=== PATIENT | female | born 1970 | race Caucasian/White ===

== ENCOUNTER 2016-06-23 10:05 | Outpatient (CLI) ==
[2015-03-26 20:46] VITALS: BMI 32.6
--- NOTE | 2016-06-23 10:22 | DI ---
EXAM: Two views of the chest. History: Cough and chest pain. Comparison: Chest radiograph 06/19/2013 Findings: Heart size is normal. No focal consolidation. No appreciable pleural fluid and no pneum othorax. No acute osseous abnormalities. Calcified granulomas again seen within the thorax. Surgi yuniel clips again seen projecting over the left lower hemithorax. Impression: No acute cardiopulmonary process.
== END 2016-06-23 10:06 | disposition home or self-care (01) ==
LOC: RAD 10:05
PROVIDERS: ATTEND Family Medicine
DX: R07.81 Pleurodynia (principal); R05 Cough

== ENCOUNTER 2021-07-24 22:34 | Observation (INO) ==
[2021-07-24 23:13] LABS: BASOPHILS # (AUTO) 0.1 K/uL (0-0.2); BASOPHILS % (AUTO) 0.4 % (0.0-3.0); EOSINOPHILS # (AUTO) 0.1 K/ul (0.0-0.7); EOSINOPHILS % (AUTO) 0.9 % (0.0-7.0); HEMATOCRIT 36.5 % (37.0-47.0); HEMOGLOBIN 11.4 g/dl (12.0-16.0); IMMATURE GRANULOCYTE # (AUTO) 0.1 (0.0-1.0); IMMATURE GRANULOCYTE % (AUTO) 0.5 % (0.0-5.0); LYMPHOCYTES # (AUTO) 2.2 K/uL (0.60-3.4); MEAN CORPUSCULAR HEMOGLOBIN 25.3 pg (27.0-31.0); MEAN CORPUSCULAR HGB CONC 31.2 (31.8-35.4); MEAN CORPUSCULAR VOLUME 81.1 fl (81.0-99.0); MONOCYTES # (AUTO) 0.9 K/uL (0.4-2.0); MONOCYTES % (AUTO) 8.1 (0-10); NEUTROPHILS # (AUTO) 8.2 K/ul (2.0-6.9); NEUTROPHILS % (AUTO) 71.1 % (42.2-75.2); PLATELET COUNT 400 10^3/uL (140-440); RDW COEFFICIENT OF VARIATION 16.4 % (11.6-14.8); WHITE BLOOD COUNT 11.47 K/ul (4.6-10.2)
[2021-07-24 23:25] LABS: ALANINE AMINOTRANSFERASE 51.3 U/L (0-35); ALBUMIN 4.17 g/dL (3.5-5.0); ALKALINE PHOSPHATASE 109.8 U/L (38-126); ASPARTATE AMINO TRANSFERASE 48.7 U/L (14-36); BLOOD UREA NITROGEN 14.8 mg/dL (7-17); CALCIUM 8.82 mg/dL (8.4-10.2); CARBON DIOXIDE 21.5 mmol/L (22-30.0); CHLORIDE 97.9 mmol/L (98-107); CREATININE 1.24 mg/dL (0.60-1.30); GLUCOSE 134.7 mg/dL (74-106); SODIUM 132.2 mmol/L (134.5-145); TOTAL PROTEIN 7.42 g/dL (6.3-8.2)
[2021-07-24 23:39] LABS: POTASSIUM 2.79 mmol/L (3.5-5.1); TROPONIN I < 0.012 ng/ml (0.0000-0.120)
--- NOTE | 2021-07-24 23:55 | ED.PDOC ---
General ED Provider: Dr. KATIE CHRISTINE Chief Complaint: Non-specific Complaint Stated Complaint: feels weak and shaky--legs tingling Time Seen by Provider: 07/24/21 23:51 Mode of Arrival: Walk-In Information Source: Patient Exam Limitations: No limitations Primary Care Provider: KATIE CHRISTINE Nursing and Triage Documentation Reviewed and Agree: Yes Does patient meet sepsis criteria?: No System Inflammatory Response Syndrome: Not Applicable Sepsis Protocol: For patient's 13 years and over: Temp is 96.8 and below OR 101 and greater Pulse >90 BPM Resp >20/minute Acutely Altered Mental Status Are patient's symptoms suggestive of a new infection, such as: -Pneumonia -Skin, Soft Tissue -Endocarditis -UTI -Bone, Joint Infection -Implantable Device -Acute Abdominal Infection -Wound Infection -Meningitis -Blood Stream Catheter Infection -Unknown Miscellaneous Complaint Exam Complex/Multi-System Complaint/Exam Onset/Duration: 24hrs Symptoms Are: Still present Episodes Lasting: Minutes Initial Severity: Mild Current Severity: Mild Location of Pain: legs Associated Signs and Symptoms: Reports Weakness Recent Echo/LV Function: No Respiratory Distress: None JVD Present: No Tachypnea Present: No Stridor Present: No Abdominal Findings: Present Normal findings Glascow Coma Scale (see protocol): 15 Meningeal Signs Positive: No Focal Weakness: Present None Focal Sensory Loss: Present None Gait: Normal Gag Reflex Present: Yes Babinski Sign: Negative Right and Negative Left Skin Findings: Present Normal findings Joint Swelling Present: No In-Dwelling Device Present: No Quality Indicators for Cardiac Chest Pain: EKG in 10min. Quality Indicator For Non-Traumatic Chest Pain/Syncope: EKG Performed Review of Systems Review Of Systems Constitutional: Reports No symptoms Eyes: Reports No symptoms Ears, Nose, Mouth, Throat: Reports No symptoms Respiratory: Reports No symptoms Cardiac: Reports No symptoms GI: Reports No symptoms : Reports No symptoms Musculoskeletal: Reports No symptoms Skin: Reports No symptoms Neurological: Reports Anxiety Endocrine: Reports No symptoms Hematologic/Lymphatic: Reports No symptoms All Other Systems: Reviewed and Negative PFSH Female Reproductive History Menstrual Hx Hysterectomy: Yes Hx Tubal Ligation: No Physical Exam Physical Exam Appearance: Reports Well-appearing Ill-appearing: None Pain Distress: None Eyes: Reports KRYS, EOMI and Conjunctiva clear ENT: Reports Ears normal and Nose normal Neck: Supple Respiratory: Reports Airway patent, Breath sounds clear and Breath sounds equal Cardiovascular: Reports RRR, Pulses normal, No rub and No murmur GI/: Reports Soft, Nontender and No masses Musculoskeletal: Reports Normal strength, ROM intact and No edema Skin: Reports Warm, Dry and Normal color Neurological: Reports Sensation intact, Motor intact, Reflexes intact, Cranial n erves intact, Alert and Oriented Psychiatric: Reports Affect appropriate, Mood appropriate and Anxious Critical Care Note Critical Care Note Total Critical Care Time (mins): 0 Course Course Hematology/Chemistry: 07/24/21 23:08 07/24/21 23:08 Orders, Labs, Meds: Lab Review 07/24/21 07/24/21 07/24/21 23:08 23:08 23:08 WBC 11.47 H RBC 4.50 Hgb 11.4 L Hct 36.5 L MCV 81.1 MCH 25.3 L MCHC 31.2 L RDW Coeff of Lilian 16.4 H Plt Count 400 Immature Gran % (Auto) 0.5 Neut % (Auto) 71.1 Lymph % (Auto) 19.0 [place] % (Auto) 8.1 Eos % (Auto) 0.9 Baso % (Auto) 0.4 Neut # (Auto) 8.2 H Lymph # (Auto) 2.2 [place] # (Auto) 0.9 Eos # (Auto) 0.1 Baso # (Auto) 0.1 Immature Gran # (Auto) 0.1 Sodium 132.2 L Potassium 2.79 L* Chloride 97.9 L Carbon Dioxide 21.5 L Anion Gap 15.59 BUN 14.8 Creatinine 1.24 Estimated GFR (MDRD) 45.00 BUN/Creatinine Ratio 11.93 Glucose 134.7 H Hemoglobin A1c 5.57 Calcium 8.82 Total Bilirubin 0.50 AST 48.7 H ALT 51.3 H Alkaline Phosphatase 109.8 Troponin I < 0.012 Total Protein 7.42 Albumin 4.17 Globulin 3.25 Albumin/Globulin Ratio 1.28 Orders Category Date Time Status EKG-(ED ONLY) Stat CARDIO 07/24/21 22:57 Ordered CBC W/ AUTO DIFF Stat LAB 07/24/21 23:08 Completed CMP [COMPREHENSIVE METABOLIC PANEL] Stat LAB 07/24/21 23:08 Completed HEMOGLOBIN A1C Stat LAB 07/24/21 23:08 Completed TROPONIN I Stat LAB 07/24/21 23:08 Completed URINALYSIS C & S IF INDICATED Stat LAB 07/24/21 22:57 Uncollected Vital Signs: Temp Pulse Resp BP Pulse Ox 07/24/21 22:34 98.2 F 84 24 138/85 96 Discharge Plan Discharge Patient Disposition: HOME SELF-CARE Discharge Problem: Acute hypokalemia Instructions: Hypokalemia (ED) Prescriptions: No Action omeprazole 20 MG capsule,delayed release(DR/EC) 20 mg PO BID 0RF albuterol sulfate [ProAir HFA] 90 mcg/actuation HFA aerosol inhaler 2 puff INHALATION PRN PRN (Reason: Shortness Of Breath) 0RF budesonide-formoterol [Symbicort] 80-4.5 mcg/actuation Hfa Aerosol Inhaler 2 puff INHALATION BID 0RF albuterol sulfate 2.5 mg /3 mL (0.083 %) Solution For Nebulization 2.5 mg INHALATION Q4-6H PRN (Reason: SHORT OF BREATH) 0RF metoprolol succinate 50 mg Tablet Extended Release 24 Hr 50 mg PO DAILY 0RF naproxen sodium [Aleve] 220 mg Tablet 220 mg PO BID PRN (Reason: Pain) 0RF azelastine 137 mcg (0.1 %) Aerosol,[place] 2 spray INTRANASAL BID 0RF Rx Instructions: administer into each nostril dicyclomine 10 mg Capsule 10 mg PO QID PRN (Reason: CRAMPING) 0RF Mucinex 1,200 mg Tablet Extended Release 12hr 1,200 mg PO BID 0RF Spiriva Respimat 1.25 mcg/actuation Mist 2 puff INHALATION DAILY 0RF fluticasone prp-sod.chl,bicarb 50 mcg- 0.9 % Kit,[place] Suspension And [place] 2 spray INTRANASAL DAILY 0RF aspirin [Aspir-81] 81 mg Tablet,Delayed Release (Dr/Ec) 81 mg PO DAILY 0RF furosemide [Lasix] 20 mg Tablet 20 mg PO DAILY 0RF ciprofloxacin HCl 0.3 % drops 1 drp BOTHEYES BID 0RF diltiazem HCl 120 mg Capsule,Extended Release 24 Hr 120 mg PO DAILY 0RF losartan-hydrochlorothiazide [Hyzaar] 50-12.5 mg Tablet 1 tab PO DAILY 0RF levocetirizine [Xyzal] 5 mg Tablet 5 mg PO DAILY 0RF ED Provider: KATIE TELLEZ Condition: Good Physician Progress Note: []
[2021-07-25] MEDS ORDERED: POTASSIUM CHLORIDE 20 MEQ/100 ML PREMIX 40 MEQ/200 ML BAG IV STA (00:05)
[2021-07-25] MEDS ORDERED: ALBUTEROL 0.083% NEB NEB PRN (00:07)
[2021-07-25] MEDS ORDERED: VENTOLIN HFA (PER PUFF-WITH SPACER) IH PRN (00:07)
[2021-07-25] MEDS ORDERED: BENTYL PO PRN (00:07)
[2021-07-25 00:45] LABS: BILIRUBIN,URINE 1+ (NEGATIVE); CLARITY,URINE Clear (CLEAR); COLOR,URINE Yellow (YELLOW); GLUCOSE, URINE (UA) Negative (NEGATIVE); KETONES,URINE Negative (NEGATIVE); LEUKOCYTE ESTERASE ,URINE Negative (NEGATIVE); NITRITE,URINE Negative (NEGATIVE); PH,URINE 5.5 (5-9); PROTEIN,URINE 1+ (NEGATIVE); URINE, BLOOD Negative (NEGATIVE); UROBILINOGEN,URINE 0.2 (0.2)
[2021-07-25 00:48] LABS: URINE RBC, MICROSCOPIC 0-2 (0-2); URINE WBC, MICROSCOPIC 0-2 (0-2)
[2021-07-25 02:05] VITALS: BMI 48.2
[2021-07-25 05:38] LABS: BASOPHILS % (AUTO) 0.3 % (0.0-3.0); EOSINOPHILS # (AUTO) 0.1 K/ul (0.0-0.7); EOSINOPHILS % (AUTO) 1.4 % (0.0-7.0); HEMATOCRIT 35.5 % (37.0-47.0); HEMOGLOBIN 10.8 g/dl (12.0-16.0); IMMATURE GRANULOCYTE # (AUTO) 0.1 (0.0-1.0); IMMATURE GRANULOCYTE % (AUTO) 0.6 % (0.0-5.0); LYMPHOCYTES # (AUTO) 2.2 K/uL (0.60-3.4); LYMPHOCYTES % (AUTO) 22.2 (10.0-50.0); MEAN CORPUSCULAR HEMOGLOBIN 24.9 pg (27.0-31.0); MEAN CORPUSCULAR HGB CONC 30.4 (31.8-35.4); MEAN CORPUSCULAR VOLUME 81.8 fl (81.0-99.0); MONOCYTES # (AUTO) 0.8 K/uL (0.4-2.0); MONOCYTES % (AUTO) 8.2 (0-10); NEUTROPHILS # (AUTO) 6.7 K/ul (2.0-6.9); NEUTROPHILS % (AUTO) 67.3 % (42.2-75.2); PLATELET COUNT 366 10^3/uL (140-440); RDW COEFFICIENT OF VARIATION 16.6 % (11.6-14.8); RED BLOOD COUNT 4.34 10^6/ul (4.20-5.40); WHITE BLOOD COUNT 9.92 K/ul (4.6-10.2)
[2021-07-25 05:53] LABS: ALANINE AMINOTRANSFERASE 53.1 U/L (0-35); ALBUMIN 3.83 g/dL (3.5-5.0); ALKALINE PHOSPHATASE 96.9 U/L (38-126); ASPARTATE AMINO TRANSFERASE 52.1 U/L (14-36); BILIRUBIN,TOTAL 0.45 mg/dL (0.2-1.3); BLOOD UREA NITROGEN 13.8 mg/dL (7-17); CALCIUM 8.53 mg/dL (8.4-10.2); CARBON DIOXIDE 25.7 mmol/L (22-30.0); CHLORIDE 97.7 mmol/L (98-107); CREATININE 1.2 mg/dL (0.60-1.30); GLUCOSE 107.5 mg/dL (74-106); POTASSIUM 2.87 mmol/L (3.5-5.1); SODIUM 131.4 mmol/L (134.5-145); TOTAL PROTEIN 6.83 g/dL (6.3-8.2)
--- NOTE | 2021-07-25 05:58 | PCM ---
Chief Complaint Chief Complaint: im weak History of Present Illness History of Present Illness: this is a 51 yr old lady with hx of asthma and copd recently seen by cardiology and had several meds added. now presented to the ed with generalized weakness and fatigue. denies any chest pain. Review of Systems Constitutional: Reports Weakness and Fatigue Eyes: Reports No symptoms Ears: Reports No symptoms Nose: Reports No symptoms Throat: Reports No symptoms Mouth: Reports No symptoms Respiratory: Reports Shortness of air Cardiovascular: Reports No symptoms Gastrointestinal: Reports No symptoms Genitourinary: Reports No symptoms Neurological: Reports No symptoms Musculoskeletal: Reports No symptoms Skin: Reports No symptoms Immunology: Reports No symptoms Hematology: Reports No symptoms Endocrine: Reports No symptoms Psychiatric: Reports No symptoms Habits: Denies Tobacco use, Substance use, Alcohol use or Other Allergies Allergies Allergy/AdvReac Type Severity Reaction Status Date / Time codeine AdvReac "DEATHLY Verified 07/24/21 23:03 SICK" fluticasone propionate AdvReac Rash Verified 07/24/21 23:03 [From Advair Diskus] mometasone furoate AdvReac Rash Verified 07/24/21 23:03 [From Nasonex] morphine AdvReac "DEATHLY Verified 07/24/21 23:03 SICK" salmeterol xinafoate AdvReac Rash Verified 07/24/21 23:03 [From Advair Diskus] suture AdvReac Itching/BLI Verified 07/24/21 23:03 STERING triamcinolone acetonide AdvReac Rash Verified 07/24/21 23:03 [From Nasacort AQ] PFSH Medical History Asthma Diabetes GERD (gastroesophageal reflux disease) Hyperlipemia Hypertension Surgical History H/O cardiac catheterization H/O gastric sleeve History of hysterectomy Hx of cholecystectomy Family History FATHER Myocardial infarct Mother Myocardial infarct Social History Smoking and tobacco status: Never smoker Alcohol intake: never Medications Medications: Medications Generic Name Dose Route Start Last Admin Trade Name Freq PRN Reason Stop Dose Admin Albuterol Sulfate 2.5 mg 07/25/21 00:07 Albuterol Sulfate 0.083% Vial.Neb NEB Q4-6H PRN Wheezing Albuterol Sulfate 2 puff 07/25/21 00:07 Albuterol Sulfate (Ventolin Hfa) 18 Gm 1 Puff With Spacer IH PRN PRN Wheezing Aspirin 81 mg 07/25/21 09:00 Aspirin 81 Mg Tablet. PO DAILY [facility] Budesonide/Formoterol Fumarate 2 puff 07/25/21 09:00 Budesonide/Formoterol Fumarate 80/4.5 Mcg Hfa.Aer.Ad IH BID JOHN Dicyclomine HCl 10 mg 07/25/21 00:07 07/25/21 01:07 Dicyclomine Hcl 10 Mg Capsule PO 10 mg QID PRN Administration Abdominal Pain Diltiazem HCl 120 mg 07/25/21 09:00 Diltiazem Hcl 120 Mg Cap.Er.24h PO DAILY [facility] Enoxaparin Sodium 40 mg 07/25/21 09:00 Enoxaparin Sodium 40 Mg/0.4 Ml Syr SUBCUT DAILY [facility] Furosemide 20 mg 07/25/21 09:00 Furosemide 20 Mg Tablet PO DAILY [facility] HCTZ/Losartan Potassium 1 tab 07/25/21 09:00 Losartan/Hydrochlorothiazide 50/12.5 Mg Tab PO DAILY [facility] Loratadine 10 mg 07/25/21 09:00 Loratadine 10 Mg Tablet PO DAILY [facility] Metoprolol Succinate 50 mg 07/25/21 09:00 Metoprolol Succinate 50 Mg Tab.Er.24h PO DAILY [facility] Non-Formulary Medication 2 puff 07/25/21 09:00 Tiotropium [place] [Spiriva Respimat] IH DAILY [facility] Omeprazole 20 mg 07/25/21 09:00 Omeprazole 20 Mg Capsule. PO BID [facility] Body Composition Height: 5 ft 7 in Weight: 308 lb Body Mass Index (BMI): 48.2 Vital Signs Temperature: 97.3 F Pulse Rate: 75 Respiratory Rate: 18 Blood Pressure: 118/71 O2 Sat by Pulse Oximetry: 100 Physical Examination Appearance: Reports Well-appearing Ill-appearing: None Pain Distress: None Eyes: Reports KRYS, EOMI and Conjunctiva clear ENT: Reports Ears normal, Nose normal and Oropharynx normal Neck: Supple Respiratory: Reports Airway patent, Breath sounds clear and Breath sounds equal Cardiovascular: Reports RRR, Pulses normal, No rub and No murmur GI/: Reports Soft, Nontender, No masses and Bowel sounds normal Musculoskeletal: Reports Normal strength, ROM intact, No edema and No calf tenderness Skin: Reports Warm, Dry and Normal color Neurological: Reports Sensation intact, Motor intact, Reflexes intact, Cranial nerves intact, Alert and Oriented Psychiatric: Reports Affect appropriate, Mood appropriate and Anxious Lab/Tests/Diagnostic Imaging Lab/Tests/Diagnostic Imaging: Lab Review 07/24/21 07/24/21 07/24/21 23:08 23:08 23:08 WBC 11.47 H RBC 4.50 Hgb 11.4 L Hct 36.5 L MCV 81.1 MCH 25.3 L MCHC 31.2 L RDW Coeff of Lilian 16.4 H Plt Count 400 Immature Gran % (Auto) 0.5 Neut % (Auto) 71.1 Lymph % (Auto) 19.0 [place] % (Auto) 8.1 Eos % (Auto) 0.9 Baso % (Auto) 0.4 Neut # (Auto) 8.2 H Lymph # (Auto) 2.2 [place] # (Auto) 0.9 Eos # (Auto) 0.1 Baso # (Auto) 0.1 Immature Gran # (Auto) 0.1 Sodium 132.2 L Potassium 2.79 L* Chloride 97.9 L Carbon Dioxide 21.5 L Anion Gap 15.59 BUN 14.8 Creatinine 1.24 Estimated GFR (MDRD) 45.00 BUN/Creatinine Ratio 11.93 Glucose 134.7 H Hemoglobin A1c 5.57 Calcium 8.82 Total Bilirubin 0.50 AST 48.7 H ALT 51.3 H Alkaline Phosphatase 109.8 Troponin I < 0.012 Total Protein 7.42 Albumin 4.17 Globulin 3.25 Albumin/Globulin Ratio 1.28 Urine Color Urine Clarity Urine pH Ur Specific [place] Urine Protein Urine Glucose (UA) Urine Ketones Urine Blood Urine Nitrite Urine Bilirubin Urine Urobilinogen Ur Leukocyte Esterase Urine Microscopic RBC Urine Microscopic WBC Ur Squamous Epith Cells SARS-CoV-2 Ag (Rapid) 07/25/21 07/25/21 07/25/21 00:28 00:28 05:01 WBC 9.92 RBC 4.34 Hgb 10.8 L Hct 35.5 L MCV 81.8 MCH 24.9 L MCHC 30.4 L RDW Coeff of Lilian 16.6 H Plt Count 366 Immature Gran % (Auto) 0.6 Neut % (Auto) 67.3 Lymph % (Auto) 22.2 [place] % (Auto) 8.2 Eos % (Auto) 1.4 Baso % (Auto) 0.3 Neut # (Auto) 6.7 Lymph # (Auto) 2.2 [place] # (Auto) 0.8 Eos # (Auto) 0.1 Baso # (Auto) 0.0 Immature Gran # (Auto) 0.1 Sodium Potassium Chloride Carbon Dioxide Anion Gap BUN Creatinine Estimated GFR (MDRD) BUN/Creatinine Ratio Glucose Hemoglobin A1c Calcium Total Bilirubin AST ALT Alkaline Phosphatase Troponin I Total Protein Albumin Globulin Albumin/Globulin Ratio Urine Color Yellow Urine Clarity Clear Urine pH 5.5 Ur Specific [place] 1.025 Urine Protein 1+ H Urine Glucose (UA) Negative Urine Ketones Negative Urine Blood Negative Urine Nitrite Negative Urine Bilirubin 1+ H Urine Urobilinogen 0.2 Ur Leukocyte Esterase Negative Urine Microscopic RBC 0-2 Urine Microscopic WBC 0-2 Ur Squamous Epith Cells 10-20 SARS-CoV-2 Ag (Rapid) Negative 07/25/21 05:01 WBC RBC Hgb Hct MCV MCH MCHC RDW Coeff of Lilian Plt Count Immature Gran % (Auto) Neut % (Auto) Lymph % (Auto) [place] % (Auto) Eos % (Auto) Baso % (Auto) Neut # (Auto) Lymph # (Auto) [place] # (Auto) Eos # (Auto) Baso # (Auto) Immature Gran # (Auto) Sodium 131.4 L Potassium 2.87 L Chloride 97.7 L Carbon Dioxide 25.7 Anion Gap 10.87 BUN 13.8 Creatinine 1.20 Estimated GFR (MDRD) 47.00 BUN/Creatinine Ratio 11.50 Glucose 107.5 H Hemoglobin A1c Calcium 8.53 Total Bilirubin 0.45 AST 52.1 H ALT 53.1 H Alkaline Phosphatase 96.9 Troponin I Total Protein 6.83 Albumin 3.83 Globulin 3.00 Albumin/Globulin Ratio 1.27 Urine Color Urine Clarity Urine pH Ur Specific [place] Urine Protein Urine Glucose (UA) Urine Ketones Urine Blood Urine Nitrite Urine Bilirubin Urine Urobilinogen Ur Leukocyte Esterase Urine Microscopic RBC Urine Microscopic WBC Ur Squamous Epith Cells SARS-CoV-2 Ag (Rapid) Orders Category Date Time Status OBSERVATION [PL[facility] PATIENT OBSERVATION] [facility] 07/25/21 00:05 Completed (MONITORED BED) EKG-(ED ONLY) Stat CARDIO 06/18/22 22:57 Completed EKG-(IP & OP ONLY) DAILY CARDIO 07/26/21 06:00 Ordered EKG-(IP & OP ONLY) DAILY CARDIO 07/27/21 06:00 Ordered METERED DOSE INHALATION Routine CARDIO 07/25/21 00:08 Active NEBULIZER TREATMENT Routine CARDIO 07/25/21 00:08 Ordered NEBULIZER TREATMENT Stat CARDIO 07/25/21 00:08 Active ACTIVITY .Up ad Joanie CARE 07/25/21 00:05 Active INTAKE & OUTPUT Q8HR CARE 07/25/21 00:06 Active IP: INSERT SALINE LOCK ONCE CARE 07/25/21 00:06 Active TELEMETRY MONITORING TELE CARE 07/25/21 00:05 Active VITAL SIGNS Q8HR CARE 07/25/21 00:06 Active CARDIAC DIET DIETARY 07/25/21 Breakfast Ordered CBC W/ AUTO DIFF DAILY@0600 LAB 07/25/21 05:01 Completed CBC W/ AUTO DIFF DAILY@0600 LAB 07/26/21 06:00 Ordered CBC W/ AUTO DIFF Stat LAB 07/24/21 23:08 Completed CMP [COMPREHENSIVE METABOLIC PANEL] Stat LAB 07/24/21 23:08 Completed COMPREHENSIVE METABOLIC PANEL DAILY@0600 LAB 07/25/21 05:01 Completed COMPREHENSIVE METABOLIC PANEL DAILY@0600 LAB 07/26/21 06:00 Ordered COVID-19 ANTIGEN TEST Stat LAB 07/25/21 00:28 Completed HEMOGLOBIN A1C Stat LAB 07/24/21 23:08 Completed TROPONIN I Stat LAB 07/24/21 23:08 Completed URINALYSIS C & S IF INDICATED Stat LAB 07/25/21 00:28 Completed Albuterol Inhaler(with Spacer) [Ventolin Hfa (Per Puff- MEDS 07/25/21 00:07 Active with Spacer)] 2 puff IH PRN PRN Albuterol Sulfate 0.083% Neb [Albuterol 0.083% Neb] MEDS 07/25/21 00:07 Active 2.5 mg NEB Q4-6H PRN Aspirin [Aspirin EC] MEDS 07/25/21 09:00 Active 81 mg PO DAILY Budesonide/Formoterol Fumarate [Symbicort 80-4.5 Mcg MEDS 07/25/21 09:00 Active Inhaler] 2 puff IH BID Dicyclomine HCl [Bentyl] MEDS 07/25/21 00:07 Active 10 mg PO QID PRN Diltiazem HCl [Cardizem Cd] MEDS 07/25/21 09:00 Active 120 mg PO DAILY Enoxaparin Sodium [Lovenox] MEDS 07/25/21 09:00 Active 40 mg SUBCUT DAILY Furosemide [Lasix Tab] MEDS 07/25/21 09:00 Active 20 mg PO DAILY Loratadine [Claritin] MEDS 07/25/21 09:00 Active 10 mg PO DAILY Losartan/Hydrochlorothiazide [Hyzaar 50-12.5 mg Tab] MEDS 07/25/21 09:00 Active 1 tab PO DAILY Metoprolol Succinate [Toprol Xl] MEDS 07/25/21 09:00 Active 50 mg PO DAILY Omeprazole [Prilosec] MEDS 07/25/21 09:00 Active 20 mg PO BID Potassium Chloride [Potassium Chloride 20 Meq/100 ml MEDS 07/25/21 00:05 Discontinued Premix] 40 meq in 200 ml IV ONCE tiotropium bromide [Spiriva Respimat] MEDS 07/25/21 09:00 Pending 2 puff IH DAILY RESUSCITATION STATUS Routine OTHERS 07/25/21 00:05 Ordered Medications Generic Name Dose Route Start Last Admin Trade Name Freq PRN Reason Stop Dose Admin Albuterol Sulfate 2.5 mg 07/25/21 00:07 Albuterol Sulfate 0.083% Vial.Neb NEB Q4-6H PRN Wheezing Albuterol Sulfate 2 puff 07/25/21 00:07 Albuterol Sulfate (Ventolin Hfa) 18 Gm 1 Puff With Spacer IH PRN PRN Wheezing Aspirin 81 mg 07/25/21 09:00 Aspirin 81 Mg Tablet.Dr PO DAILY [facility] Budesonide/Formoterol Fumarate 2 puff 07/25/21 09:00 Budesonide/Formoterol Fumarate 80/4.5 Mcg Hfa.Aer.Ad IH BID JOHN Dicyclomine HCl 10 mg 07/25/21 00:07 07/25/21 01:07 Dicyclomine Hcl 10 Mg Capsule PO 10 mg QID PRN Administration Abdominal Pain Diltiazem HCl 120 mg 07/25/21 09:00 Diltiazem Hcl 120 Mg Cap.Er.24h PO DAILY [facility] Enoxaparin Sodium 40 mg 07/25/21 09:00 Enoxaparin Sodium 40 Mg/0.4 Ml Syr SUBCUT DAILY [facility] Furosemide 20 mg 07/25/21 09:00 Furosemide 20 Mg Tablet PO DAILY JOHN HCTZ/Losartan Potassium 1 tab 07/25/21 09:00 Losartan/Hydrochlorothiazide 50/12.5 Mg Tab PO DAILY JOHN Loratadine 10 mg 07/25/21 09:00 Loratadine 10 Mg Tablet PO DAILY JOHN Metoprolol Succinate 50 mg 07/25/21 09:00 Metoprolol Succinate 50 Mg Tab.Er.24h PO DAILY [facility] Non-Formulary Medication 2 puff 07/25/21 09:00 Tiotropium [place] [Spiriva Respimat] IH DAILY [facility] Omeprazole 20 mg 07/25/21 09:00 Omeprazole 20 Mg Capsule. PO BID JOHN Discontinued Medications Generic Name Dose Route Start Last Admin Trade Name Freq PRN Reason Stop Dose Admin Potassium Chloride 40 meq in 200 mls @ 50 mls/hr 07/25/21 00:05 07/25/21 01:17 Potassium Chloride 20 Meq/100 Ml Premix IV 07/25/21 04:04 50 mls/hr ONCE STA Administration Assessment (1) Acute hypokalemia: Status: Acute Code(s): E87.6 - Hypokalemia SNOMED Code(s): 50318864 Plan Plan: will replete k, telemetry monitoring, continue home meds, dvt prophylaxis
[2021-07-25] MEDS ORDERED: ASPIRIN EC PO SCH (08:30)
[2021-07-25] MEDS: PRILOSEC PO SCH ×2 (08:38→16:10)
[2021-07-25] MEDS ORDERED: LASIX TAB PO SCH (09:00)
[2021-07-25] MEDS ORDERED: LOVENOX SUBCUT SCH (09:00)
[2021-07-25] MEDS ORDERED: NON-FORMULARY MEDICATION (Tiotropium Bromide [Spiriva Respimat] 1.25 mcg/actuation Mist) IH SCH (09:00)
[2021-07-25] MEDS ORDERED: SYMBICORT 80-4.5 MCG INHALER IH SCH (09:00)
[2021-07-25] MEDS ORDERED: CLARITIN PO SCH (09:00)
[2021-07-25] MEDS ORDERED: MUCINEX PO SCH (09:00)
[2021-07-25] MEDS ORDERED: CARDIZEM CD PO SCH (09:00)
[2021-07-25] MEDS ORDERED: HYZAAR 50-12.5 MG TAB PO SCH (09:00)
[2021-07-25] MEDS ORDERED: TOPROL XL PO SCH (09:00)
[2021-07-25] MEDS ORDERED: SPIRIVA IH SCH (09:00)
[2021-07-25] MEDS ORDERED: K-DUR PO ONE (09:20)
--- NOTE | 2021-07-25 09:49 | PCM.PROG ---
Date Seen by Provider: 07/25/21 Time Seen by Provider: 09:46 Subjective: Patient reports that her weakness and numbness/tingling have resolved. She is ambulating without assistance. Tolerating PO intake. Objective: Vitals: T=97.3 F, P=75, R=18, HP=602/71, SBK4=546 Patient appears well. She is alert and in NAD. Patient is in good spirits and is asking to be discharged today. HEENT: [] Neck: [] Lungs: [] Chest clear. BS equal. CVS: [] RRR. Abdomen: [] Extremities: [] Neurological: []Motor strength normal and equal bilaterally. No sensory deficit. Skin: [] Lab/Tests/Diagnostic Imaging: [] (1) Acute hypokalemia: Status: Acute Code(s): E87.6 - Hypokalemia SNOMED Code(s): 63116111 Assessment: Morning potassium level was 2.87. Patient has only received KCl 20meq IV. Plan: Complete next potassium piggyback 20meq KCl. KDur 40meq orally. Repeat potassium level after aforementioned supplements administered. Discharge if repeat potassium level is normal or near normal. Will send home on KDur 20meq daily.
--- NOTE | 2021-07-25 09:58 | PCM.DC ---
Final Diagnosis: hypokalemia paresthesias generalized weakness Physical Exam Appearance: Well-appearing, No pain distress and Obese Ill-appearing: None Pain Distress: None Eyes: KRYS, EOMI and Conjunctiva clear ENT: Nose normal and Oropharynx normal Neck: Supple Respiratory: Airway patent, Breath sounds clear and Breath sounds equal Cardiovascular: RRR, No rub and No murmur GI/: Soft, Nontender and Bowel sounds normal Musculoskeletal: Normal strength, ROM intact and No edema Skin: Warm, Dry and Normal color Neurological: Sensation intact, Motor intact, Alert and Oriented Psychiatric: Affect appropriate and Mood appropriate (1) Acute hypokalemia: Status: Acute Code(s): E87.6 - Hypokalemia SNOMED Code(s): 92596344 Reason for Hospitalization: Patient admitted with generalized weakness and paresthesias secondary to acute hypokalemia. Prognosis/Condition at Discharge: Condition at discharge was good. Prognosis for full recovery excellent. Medications at Discharge: Ambulatory Orders Medication Instructions Recorded omeprazole 20 mg capsule,delayed 20 mg PO BID 05/13/13 release albuterol sulfate 90 mcg/actuation 2 puff INHALATION PRN PRN 06/04/20 aerosol inhaler (ProAir HFA) budesonide-formoterol HFA 80 2 puff INHALATION BID 06/04/20 mcg-4.5 mcg/actuation aerosol inhaler (Symbicort) albuterol sulfate 2.5 mg INHALATION Q4-6H PRN 03/05/21 azelastine 137 mcg (0.1 %) nasal 2 spray INTRANASAL BID 03/05/21 spray aerosol dicyclomine 10 mg capsule 10 mg PO QID PRN 03/05/21 fluticasone prop.50 mcg 2 spray INTRANASAL DAILY 03/05/21 spray,suspen-sod.chloride 0.9% nasal spray kit guaifenesin 1,200 mg tablet, 1,200 mg PO BID 03/05/21 extended release 12 hr (Mucinex) metoprolol succinate 50 mg 50 mg PO DAILY 03/05/21 tablet,extended release 24 hr naproxen sodium 220 mg tablet 220 mg PO BID PRN 03/05/21 (Aleve) tiotropium bromide 1.25 2 puff INHALATION DAILY 03/05/21 mcg/actuation mist for inhalation (Spiriva Respimat) aspirin 81 mg tablet,delayed 81 mg PO DAILY 07/24/21 release ciprofloxacin HCl 0.3 % eye drops 1 drp BOTHEYES BID 07/24/21 diltiazem HCl 120 mg capsule,24 120 mg PO DAILY 07/24/21 hr,extended release furosemide 20 mg tablet (Lasix) 20 mg PO DAILY 07/24/21 levocetirizine 5 mg tablet (Xyzal) 5 mg PO DAILY 07/24/21 losartan 50 mg-hydrochlorothiazide 1 tab PO DAILY 07/24/21 12.5 mg tablet (Hyzaar) Lab/Diagnostics: AM potassium level was 2.87. Repeat potassium leve pending. Follow-ups: Follow up with your primary care provider within one week. Discharge Disposition: Home Hospital Course: Patient admitted with symptomatic hypokalemia. She had her potassium deficit repleted. Plan: Patient will be discharged home on oral potassium supplement 20meq daily
[2021-07-25 13:47] VITALS: BP 107/58; TEMP 98.1
[2021-07-25 16:07] LABS: BLOOD UREA NITROGEN 17.7 mg/dL (7-17); CALCIUM 8.16 mg/dL (8.4-10.2); CARBON DIOXIDE 20.3 mmol/L (22-30.0); CHLORIDE 104.5 mmol/L (98-107); CREATININE 1.19 mg/dL (0.60-1.30); GLUCOSE 126.1 mg/dL (74-106); SODIUM 134.5 mmol/L (134.5-145)
[2021-07-25 16:12] LABS: POTASSIUM 3.56 mmol/L (3.5-5.1)
== END 2021-07-25 16:30 | disposition home or self-care (01) ==
LOC: ED 22:34 → MEDSURG A 22:34
PROVIDERS: ADMIT Family Medicine; ATTEND Surgery
DX: Z20.822 Contact with and (suspected) exposure to COVID-19; Z51.81 Encounter for therapeutic drug level monitoring; Z79.899 Other long term (current) drug therapy; R53.83 Other fatigue; R20.2 Paresthesia of skin; M62.81 Muscle weakness (generalized); E87.6 Hypokalemia